=== PATIENT | male | born 1965 | race Caucasian/White ===

== ENCOUNTER 2022-07-18 15:29 | Emergency (ER) | payer OTHER, SELFPAY ==
[2022-07-18 15:40] VITALS: BMI 26.5
[2022-07-18 15:42] VITALS: BP 138/82; PULSE 93; RESP 18; TEMP 36.7; O2SAT 93
--- NOTE | 2022-07-18 16:33 | XRR_ITS ---
PROCEDURE INFORMATION: Exam: XR Right Ankle Exam date and time: 07/18/2022 4:40 PM Age: 56 years old Clinical indication: Injury or trauma; Fall; Blunt trauma; Ankle and foot; Right TECHNIQUE: Imaging protocol: Radiologic exam of the Right ankle. Views: 3 or more views. COMPARISON: No relevant prior studies available. FINDINGS: Bones/joints: Comminuted very minimally displaced calcaneal fracture with suspected extension to the subtalar joint. Soft tissues: Soft tissue swelling about the ankle. XR/XR ankle RT min 3V* [id number] IMPRESSION: 1. Comminuted very minimally displaced calcaneal fracture with suspected extension to the subtalar joint. 2. Soft tissue swelling about the ankle.
--- NOTE | 2022-07-18 16:33 | XRR_ITS ---
PROCEDURE INFORMATION: Exam: XR Right Foot Exam date and time: 07/18/2022 4:44 PM Age: 56 years old Clinical indication: Injury or trauma; Fall; Blunt trauma; Ankle and foot; Right TECHNIQUE: Imaging protocol: Radiologic exam of the Right foot. Views: 3 or more views. COMPARISON: CR (LOW EX, ) 07/18/2022 4:40 PM FINDINGS: Bones/joints: Comminuted very minimally displaced calcaneal fracture with suspected with extension to the subtalar joint. Soft tissues: Normal. XR/XR foot RT min 3V* [id number] IMPRESSION: Comminuted very minimally displaced calcaneal fracture with suspected with extension to the subtalar joint.
--- NOTE | 2022-07-18 16:37 | W.ED.EXTPRO ---
HPI - Extremity Problem General: Chief complaint: Extremity Injury, Lower Stated complaint: Fell, Right heel injury Time Seen by Provider: 07/18/22 16:25 History of Present Illness: 56-year-old male patient comes in today for injury to the right foot and ankle. Patient reports he was on the ladder and fell off the ladder about 5 to 10 feet. Patient reported some posterior ankle foot area pain. Patient at this time cannot bear weight to his foot due to the pain. Patient reports some mild swelling to the foot. Associated symptoms: Deny fever(s) Review of Systems Const: Denies: fever(s) Musc: Reports: extremity pain and extremity swelling Physical Exam Const: COMMON NORMALS: alert HENMT: COMMON NORMALS: normocephalic HEAD & SCALP: normocephalic Neck/C-Spine: CERVICAL SPINE: No Cervical spine tenderness Chest: COMMONS NORMALS: normal palpation of entire chest wall Resp: COMMON NORMALS: normal respiratory effort Cardio: COMMON NORMALS: regular rate RATE: regular rate Back/Pelvis: THORACIC SPINE/UPPER BACK: No thoracic spinal tenderness LUMBAR SPINE/LOWER BACK: No lumbar spinal tenderness Extremity: RIGHT LOWER EXTREMITY: Yes foot & digits (Posterior foot/heel discomfort with swelling.) Right foot and digits: Yes inspection, Yes palpation and Yes ROM Neuro: SENSORIUM/ORIENTATION: Yes alert Skin: COMMON NORMALS: turgor normal GENERAL SKIN EXAM: turgor normal Course ED course: 0, reviewed patient with Dr. Chan, on-call orthopedist, further evaluation of the fracture with CT scan then a well-padded splint, nonweightbearing, and follow-up for further treatment. Vital Signs: Vital signs: Vital Signs Temperature 98.0 F 07/18/22 15:42 Pulse Rate 93 07/18/22 15:42 Respiratory Rate 18 07/18/22 15:42 Blood Pressure 138/82 07/18/22 15:42 Pulse Oximetry 93 07/18/22 15:42 Oxygen Delivery Me thod 07/18/22 15:42 MDM - Extremity (Nontraumatic) Medical Decision Making 56-year-old male patient comes in today for injury of the right foot after fall from a ladder. Patient reports slipping and falling about 5 to 10 foot onto the ground with pain to the heel. On exam patient has some swelling to the right ankle and heel area. Pulses are intact. Vital signs are normal. Differential diagnosis includes fracture, sprain, dislocation. X-ray noted a calcaneal comminuted fracture with minimal to no displacement. Reviewed exam with Dr. Chan, orthopedist on-call, with recommendations for CT scan and follow-up. Patient was placed in a well-padded splint and nonweightbearing with crutches. Patient reported understanding of care plan and need for follow-up or return to the ER. Lab Data Radiology Impressions Ankle X-Ray 07/18/22 16:33 IMPRESSION: 1. Comminuted very minimally displaced calcaneal fracture with suspected extension to the subtalar joint. 2. Soft tissue swelling about the ankle. Foot X-Ray 07/18/22 16:33 IMPRESSION: Comminuted very minimally displaced calcaneal fracture with suspected with extension to the subtalar joint. Discharge Plan Discharge Patient Disposition: Home Clinical Impression: Calcaneus fracture, right Qualifiers: Encounter type: initial encounter Calcaneus location: unspecified portion of calcaneus Fracture type: closed Fracture alignment: nondisplaced Qualified Code(s): S92.001A - Unspecified fracture of right calcaneus, initial encounter for closed fracture Condition: Stable Prescriptions: New hydrocodone-acetaminophen 5-325 mg tablet 1 tab PO Q6H PRN (Reason: pain) Qty: 10 0RF Discharge Orders: Discharge ED (Routine); Ordered 07/18/22 Ordered By: Georgi Henson Discharge Diet: Usual diet Discharge Activity: Limit activity as instructed Patient Instructions: Calcaneal Fracture (ED), Opioid Safety Activity Restrictions/Additional Instructions: No weightbearing to the extremity. Use acetaminophen and ibuprofen to help control pain. Use hydrocodone for severe pain. Elevate extremity is much as possible. Case management will contact you regarding follow-up appointment with foot and ankle surgeon. Return to ER for new concerns or worsening symptoms. Coding Level of Care Code ED Customer Contact Representative for Shaka Fwlizzie Exam Comprehensive
[2022-07-18] MEDS: HYDROcodone-acetaminophen 10-325 mg Tablet 1 TAB PO (16:38)
--- NOTE | 2022-07-18 17:10 | CTR_ITS ---
PROCEDURE INFORMATION: Exam: CT Right Lower Extremity Without Contrast, Foot Exam date and time: 07/18/2022 5:19 PM Age: 56 years old Clinical indication: Injury or trauma; Fall; Fracture, traumatic; Closed fracture; Calcaneus; Right; Additional info: Right foot calcaneal fracture with 3d reconstruct TECHNIQUE: Imaging protocol: CT of the Right lower extremity without contrast was performed. Exam focused on the foot. Radiation optimization: All CT scans at this facility use at least one of these dose optimization techniques: automated exposure control; mA and/or kV adjustment per patient size (includes targeted exams where dose is matched to clinical indication); or iterative reconstruction. COMPARISON: CR (LOW EXM, ) 07/18/2022 4:44 PM RADIATION DOSE METRICS: Total DLP (mGy-cm): 134.67 FINDINGS: Bones/joints: Comminuted mildly displaced calcaneal fracture with involvement of the subtalar joint. Soft tissues: Normal. CT/CT foot RT wo con* [id number] IMPRESSION: Comminuted mildly displaced calcaneal fracture with involvement of the subtalar joint.
--- NOTE | 2022-07-19 12:42 | DCPLANNER ---
Addendum entered by Odalys Jeter 08/19/22 08:54: Patient had a follow up appointment scheduled for 07.20.22 with ortho - patient did attend appointment. Original Note: legal records manager had message to schedule a follow up appointment for patient with ortho. legal records manager sent patients information to the front office staff at ortho. Patients information will be printed and reviewed. Clinic will call patient with appointment information.
== END 2022-07-18 18:26 | disposition home or self-care (01) ==
PROVIDERS: Emergency Provider Nurse Practitioner Family
DX: S92.001A Unspecified fracture of right calcaneus, initial encounter for closed fracture (principal); W11.XXXA Fall on and from ladder, initial encounter
CPT/HCPCS: 29515; 73610; 73630; 73700; 99284; E0114

== ENCOUNTER → 2022-08-03 13:47 | Outpatient (BNVA) | payer OTHER, SELFPAY | PROVIDERS: Visit Provider Podiatrist Foot & Ankle Surgery | DX: S92.061A Displaced intraarticular fracture of right calcaneus, initial encounter for closed fracture (principal); W11.XXXA Fall on and from ladder, initial encounter; R60.0 Localized edema | CPT/HCPCS: 73650 ==

== ENCOUNTER → 2022-08-31 14:01 | Outpatient (BNVA) | payer OTHER, SELFPAY | PROVIDERS: Visit Provider Podiatrist Foot & Ankle Surgery | DX: X58.XXXA Exposure to other specified factors, initial encounter (principal); R60.0 Localized edema; S92.061A Displaced intraarticular fracture of right calcaneus, initial encounter for closed fracture | CPT/HCPCS: 73650 ==

== ENCOUNTER 2022-08-31 14:45 | Outpatient (CLI) | payer OTHER, SELFPAY | END 2022-08-31 14:46 | disposition home or self-care (01) | LOC: SPT 14:46 | PROVIDERS: Visit Provider Podiatrist Foot & Ankle Surgery | DX: Z46.89 Encounter for fitting and adjustment of other specified devices (principal); S92.001D Unspecified fracture of right calcaneus, subsequent encounter for fracture with routine healing; X58.XXXD Exposure to other specified factors, subsequent encounter | CPT/HCPCS: 97760; L4361 ==

== ENCOUNTER → 2022-09-14 14:43 | Outpatient (BNVA) | payer OTHER, SELFPAY | PROVIDERS: Visit Provider Podiatrist Foot & Ankle Surgery | DX: S92.061A Displaced intraarticular fracture of right calcaneus, initial encounter for closed fracture (principal); X58.XXXA Exposure to other specified factors, initial encounter; R60.0 Localized edema | CPT/HCPCS: 73650 ==

== ENCOUNTER → 2022-09-28 14:05 | Outpatient (BNVA) | payer OTHER, SELFPAY | PROVIDERS: Visit Provider Podiatrist Foot & Ankle Surgery | DX: X58.XXXA Exposure to other specified factors, initial encounter (principal); R60.0 Localized edema; S92.061A Displaced intraarticular fracture of right calcaneus, initial encounter for closed fracture | CPT/HCPCS: 73650 ==